=== PATIENT | male | born 1955 | race Caucasian/White ===

== ENCOUNTER → 2022-05-15 | Outpatient (CLI) | payer MEDICARE | LOC: RAD 08:37 | PROVIDERS: ATTEND Family Medicine | DX: I89.0 Lymphedema, not elsewhere classified (principal) ==

== ENCOUNTER → 2022-05-15 | Outpatient (CLI) | payer MEDICARE, OTHER | LOC: CARD 08:33 | PROVIDERS: ATTEND Podiatrist | DX: R60.0 Localized edema (principal) | CPT/HCPCS: 93925; 93970 ==

== ENCOUNTER → 2022-10-15 | Outpatient (CLI) | payer MEDICARE | LOC: CT 13:30 | PROVIDERS: ATTEND Family Medicine | DX: F17.210 Nicotine dependence, cigarettes, uncomplicated (principal) | CPT/HCPCS: 71250 ==

== ENCOUNTER → 2023-04-10 | Outpatient (REF) | payer MEDICARE ==
[~2023-04-10] MED LIST: IOPAMIDOL 370 MG/ML 100 ML INFUS..BTL INJ ONE; SODIUM CHLORIDE 0.9% 100 ML ONE
[2023-04-10 08:55] LABS: CREATININE, SERUM 1.14 mg/dL (0.72-1.25)
== END ==
LOC: CT 07:36
PROVIDERS: ATTEND Surgery Vascular Surgery
DX: I73.9 Peripheral vascular disease, unspecified (principal); Z95.828 Presence of other vascular implants and grafts
CPT/HCPCS: 36415; 75635; 82565; 84520; J7050; Q9967

== ENCOUNTER → 2023-09-03 | Day surgery (SDC) | payer MEDICARE ==
[2023-08-28 09:32] LABS: BASOPHILS # (AUTO) 0.1 (0.0-0.1); BASOPHILS % 0.9 % (0.0-1.0); EOSINOPHILS # (AUTO) 0.4 (0.0-0.4); EOSINOPHILS % 6.2 % (0.0-6.0); HEMATOCRIT 44.8 % (38.2-49.6); HEMOGLOBIN 15.6 g/dL (14.0-18.0); LYMPHOCYTES # (AUTO) 1.9 (1.0-3.2); LYMPHOCYTES % 28.1 % (18.0-39.1); MEAN CORPUSCULAR HEMOGLOBIN 29.9 pg (28-32); MEAN CORPUSCULAR HGB CONC 34.8 g/dL (31-35); MONOCYTES # (AUTO) 0.6 (0.2-0.8); MONOCYTES % 8.4 % (4.4-11.3); NEUTROPHILS # (AUTO) 3.8 (2.1-6.9); NEUTROPHILS % 55.8 % (38.7-80.0); PLATELET COUNT 146 x10e3/uL (140-360); RED BLOOD COUNT 5.21 x10e6/uL (4.3-5.7); RED CELL DISTRIBUTION WIDTH 14.5 % (11.7-14.4)
[2023-08-28 09:52] LABS: ANION GAP 15.6 mmol/L (8-16); CALCIUM 9.7 mg/dL (8.4-10.2); CREATININE, SERUM 1.11 mg/dL (0.72-1.25); POTASSIUM 4.6 mmol/L (3.5-5.1)
[~2023-09-03] MED LIST changes: +ACETAMINOPHEN 1000 MG/100 ML 100 ML IV ONE; +ALLOPURINOL100 MG PO; +ASPIRIN81 MG PO; +ATORVASTATIN CA10 MG PO; +BENICAR20 MG PO; +BRILINTA60 MG PO; +CARVEDILOL12.5 MG PO; +CYCLOBENZAPRINE10 MG PO; +FENTANYL CITRATE/PF 100MCG/2 ML INJ ONE; +FLONASE ALLERG9.9 ML INH; +FUROSEMIDE40 MG PO; +GLIPIZIDE ER5 MG PO; -IOPAMIDOL 370 MG/ML 100 ML INFUS..BTL INJ ONE; +IOPAMIDOL 610MG/1ML 300 MG/ML VIAL IV ONE; +JARDIANCE25 MG PO; +LIDOCAINE HCL 2% LOCAL INJ 5 ML SDV VIAL INJ ONE; +METFORMIN HCL500 MG PO; +MULTI-VITAMIN1 EACH PO; +NIFEDIPINE10 MG PO; +OMEPRAZOLE40 MG PO; +ONDANSETRON HCL INJ 2MG/ML 2ML 2 MG/ML VIAL ONE; +PROPOFOL IV EMULSION 10 MG/ML 20 ML VIAL ONE; +PROVENTIL HFA6.7 GM INH; +SEVOFLURANE INHAL SOLN 250 ML PEN BTL ONE; -SODIUM CHLORIDE 0.9% 100 ML ONE; +SPIRIVA RESPIMAT4 GM INH; +SYSTANE 0.3-0.415 ML OU; +TYLENOL EXTRA500 MG PO; +VASCEPA1 GM PO; +VISINE DRY EYE30 ML OU; +VITAMIN D3125 MCG PO; +ZETIA10 MG PO
[2023-09-03] MEDS: CEFTRIAXONE 1 GM VIAL ONE (08:32)
[2023-09-03] MEDS: LACTATED RINGER'S 1,000 ML ONE (08:32)
[2023-09-03] MEDS: GENTAMICIN 80MG/NS 100 ML 200 ML IV ONE (08:33)
[2023-09-03 11:20] VITALS: TEMP 98.5
[2023-09-03] MEDS: PHENAZOPYRIDINE HCL 100 MG TAB ONE (11:50)
[2023-09-03 12:50] VITALS: BP 131/58; PULSE 57; RESP 16; O2SAT 95
== END | disposition home or self-care (01) ==
LOC: OR 08:27
PROVIDERS: ATTEND Urology
DX: N40.1 Benign prostatic hyperplasia with lower urinary tract symptoms (principal); N13.8 Other obstructive and reflux uropathy; R39.14 Feeling of incomplete bladder emptying; R39.12 Poor urinary stream; R35.1 Nocturia; C67.9 Malignant neoplasm of bladder, unspecified; N39.0 Urinary tract infection, site not specified; N35.819 Other urethral stricture, male, unspecified site; N32.89 Other specified disorders of bladder; N32.81 Overactive bladder; N39.41 Urge incontinence; R81 Glycosuria; K42.9 Umbilical hernia without obstruction or gangrene; I10 Essential (primary) hypertension; E11.9 Type 2 diabetes mellitus without complications; I25.10 Atherosclerotic heart disease of native coronary artery without angina pectoris; J44.9 Chronic obstructive pulmonary disease, unspecified; E78.5 Hyperlipidemia, unspecified; M54.9 Dorsalgia, unspecified; K21.9 Gastro-esophageal reflux disease without esophagitis; Z01.810 Encounter for preprocedural cardiovascular examination; Z01.812 Encounter for preprocedural laboratory examination; Z79.84 Long term (current) use of oral hypoglycemic drugs; Z79.82 Long term (current) use of aspirin; Z79.899 Other long term (current) drug therapy; Z68.38 Body mass index [BMI] 38.0-38.9, adult; Z92.21 Personal history of antineoplastic chemotherapy; Z95.820 Peripheral vascular angioplasty status with implants and grafts
CPT/HCPCS: 52005; C9740; 36415; 74420; 80048; 82948; 85025; 93005; C1758; J0696; J1580; J2001; J2405; L8699

== ENCOUNTER → 2024-02-20 | Outpatient (REF) | payer MEDICARE ==
[~2024-02-20] MED LIST changes: -ACETAMINOPHEN 1000 MG/100 ML 100 ML IV ONE; -FENTANYL CITRATE/PF 100MCG/2 ML INJ ONE; -IOPAMIDOL 610MG/1ML 300 MG/ML VIAL IV ONE; -LIDOCAINE HCL 2% LOCAL INJ 5 ML SDV VIAL INJ ONE; -ONDANSETRON HCL INJ 2MG/ML 2ML 2 MG/ML VIAL ONE; -PROPOFOL IV EMULSION 10 MG/ML 20 ML VIAL ONE; -SEVOFLURANE INHAL SOLN 250 ML PEN BTL ONE
[2024-02-20 15:31] LABS: BASOPHILS # (AUTO) 0.1 (0.0-0.1); BASOPHILS % 1.1 % (0.0-1.0); EOSINOPHILS # (AUTO) 0.4 (0.0-0.4); EOSINOPHILS % 6.6 % (0.0-6.0); HEMATOCRIT 43.6 % (38.2-49.6); HEMOGLOBIN 14.3 g/dL (14.0-18.0); LYMPHOCYTES # (AUTO) 1.9 (1.0-3.2); LYMPHOCYTES % 35.1 % (18.0-39.1); MEAN CORPUSCULAR HEMOGLOBIN 30.4 pg (28-32); MEAN CORPUSCULAR HGB CONC 32.8 g/dL (31-35); MEAN CORPUSCULAR VOLUME 92.8 fL (81-99); MONOCYTES # (AUTO) 0.5 (0.2-0.8); MONOCYTES % 9.4 % (4.4-11.3); NEUTROPHILS # (AUTO) 2.6 (2.1-6.9); NEUTROPHILS % 47.4 % (38.7-80.0); PLATELET COUNT 145 x10e3/uL (140-360); RED CELL DISTRIBUTION WIDTH 15.3 % (11.7-14.4); WHITE BLOOD COUNT 5.44 x10e3/uL (4.8-10.8)
[2024-02-20 15:55] LABS: ALBUMIN 4.3 g/dL (3.5-5.0); ALBUMIN/GLOBULIN RATIO 1.3 (0.8-2.0); ANION GAP 16.3 mmol/L (8-16); BILIRUBIN,TOTAL 0.5 mg/dL (0.2-1.2); CALCIUM 9.9 mg/dL (8.4-10.2); CREATININE, SERUM 1.31 mg/dL (0.72-1.25); POTASSIUM 4.3 mmol/L (3.5-5.1); TOTAL PROTEIN 7.7 g/dL (6.5-8.1)
== END | disposition home or self-care (01) ==
LOC: LAB 05:00 → OR 02-26 08:06 → EDSTATUS 02-26 10:30
PROVIDERS: ATTEND Surgery
DX: L72.8 Other follicular cysts of the skin and subcutaneous tissue (principal); Z53.9 Procedure and treatment not carried out, unspecified reason
CPT/HCPCS: 36415; 71046; 80053; 85025; 93005

== ENCOUNTER → 2024-09-22 | Day surgery (SDC) | payer MEDICARE ==
[2024-09-21 10:36] LABS: BASOPHILS # (AUTO) 0.1 (0.0-0.1); BASOPHILS % 1.2 % (0.0-1.0); EOSINOPHILS # (AUTO) 0.4 (0.0-0.4); HEMATOCRIT 45.8 % (38.2-49.6); HEMOGLOBIN 15.2 g/dL (14.0-18.0); LYMPHOCYTES # (AUTO) 1.8 (1.0-3.2); LYMPHOCYTES % 34.8 % (18.0-39.1); MEAN CORPUSCULAR HEMOGLOBIN 28.8 pg (28-32); MEAN CORPUSCULAR HGB CONC 33.2 g/dL (31-35); MEAN CORPUSCULAR VOLUME 86.9 fL (81-99); MONOCYTES # (AUTO) 0.3 (0.2-0.8); NEUTROPHILS # (AUTO) 2.6 (2.1-6.9); NEUTROPHILS % 50.8 % (38.7-80.0); PLATELET COUNT 129 x10e3/uL (140-360); RED BLOOD COUNT 5.27 x10e6/uL (4.3-5.7); RED CELL DISTRIBUTION WIDTH 14.7 % (11.7-14.4); WHITE BLOOD COUNT 5.17 x10e3/uL (4.8-10.8)
[2024-09-21 10:59] LABS: ANION GAP 17.8 mmol/L (8-16); CALCIUM 9.4 mg/dL (8.4-10.2); CREATININE, SERUM 1.17 mg/dL (0.72-1.25); POTASSIUM 3.8 mmol/L (3.5-5.1)
[~2024-09-22] MED LIST changes: +ACETAMINOPHEN 1000 MG/100 ML 100 ML IV ONE; +ANORO ELLIPTA1 EACH; +D3-5000125 MCG; +DEXAMETHASONE SOD PHOS INJ 4 MG/ML SDV ONE; +EPHEDRINE SULFATE INJ 50 MG/ML VIAL ONE; +FENOFIBRATE145 MG PO; +FENTANYL CITRATE/PF 100MCG/2 ML INJ ONE; +LIDOCAINE HCL 2% LOCAL INJ 5 ML SDV VIAL INJ ONE; +ONDANSETRON HCL INJ 2MG/ML 2ML 2 MG/ML VIAL ONE; +PROPOFOL IV EMULSION 10 MG/ML 20 ML VIAL ONE; +SEVOFLURANE INHAL SOLN 250 ML PEN BTL ONE; +TORSEMIDE100 MG PO
[2024-09-22] MEDS: LACTATED RINGER'S 1,000 ML ONE (07:35)
[2024-09-22] MEDS: CEFAZOLIN SODIUM 2 GM ONE (07:36)
[2024-09-22 11:00] VITALS: TEMP 97.6
[2024-09-22 11:15] VITALS: BP 141/61; PULSE 78; RESP 16; O2SAT 98
== END | disposition home or self-care (01) ==
LOC: OR 06:48
PROVIDERS: ATTEND Urology
DX: L82.1 Other seborrheic keratosis (principal); C67.9 Malignant neoplasm of bladder, unspecified; I25.10 Atherosclerotic heart disease of native coronary artery without angina pectoris; Z95.5 Presence of coronary angioplasty implant and graft; E78.5 Hyperlipidemia, unspecified; J44.9 Chronic obstructive pulmonary disease, unspecified; E11.9 Type 2 diabetes mellitus without complications; K21.9 Gastro-esophageal reflux disease without esophagitis; F17.210 Nicotine dependence, cigarettes, uncomplicated; Z01.810 Encounter for preprocedural cardiovascular examination; Z01.812 Encounter for preprocedural laboratory examination; Z79.82 Long term (current) use of aspirin; Z79.84 Long term (current) use of oral hypoglycemic drugs; Z79.899 Other long term (current) drug therapy
CPT/HCPCS: 17110; 36415 ×2; 80048; 82948; 85025; 88305; 93005; J0131; J2003; J2405; J2704; J3010; J7121; J1100

== ENCOUNTER 2024-12-28 10:41 | Observation (INO) | payer MEDICARE, OTHER ==
[~2024-12-28] VITALS: Ht 165.1 cm; Wt 94.8 kg
[~2024-12-28 10:41] MED LIST changes: -ACETAMINOPHEN 1000 MG/100 ML 100 ML IV ONE; -DEXAMETHASONE SOD PHOS INJ 4 MG/ML SDV ONE; -EPHEDRINE SULFATE INJ 50 MG/ML VIAL ONE; -FENTANYL CITRATE/PF 100MCG/2 ML INJ ONE; -LIDOCAINE HCL 2% LOCAL INJ 5 ML SDV VIAL INJ ONE; -ONDANSETRON HCL INJ 2MG/ML 2ML 2 MG/ML VIAL ONE; -PROPOFOL IV EMULSION 10 MG/ML 20 ML VIAL ONE; -SEVOFLURANE INHAL SOLN 250 ML PEN BTL ONE
[2024-12-28 11:19] VITALS: TEMP 97.7
[2024-12-28] MEDS: SODIUM CHLORIDE 0.9% 1000ML 1,000 ML IV STA (12:05)
[2024-12-28 12:13] LABS: BASOPHILS % 1.2 % (0.0-1.0); EOSINOPHILS % 8.1 % (0.0-6.0); LYMPHOCYTES % 40.2 % (18.0-39.1); MONOCYTES % 7.7 % (4.4-11.3); NEUTROPHILS % 41.2 % (38.7-80.0); RED CELL DISTRIBUTION WIDTH 17.7 % (11.7-14.4)
[2024-12-28 12:34] LABS: INR 0.98
[2024-12-28 12:42] LABS: EST GLOMERULAR FILTRATION RATE 78.0 ML/MIN (>=60)
[2024-12-28] MEDS ORDERED: IOPAMIDOL 370 MG/ML 100 ML INFUS..BTL INJ ONE (12:53)
[2024-12-28] MEDS ORDERED: SODIUM CHLORIDE 0.9% 100 ML ONE (12:53)
[2024-12-28 16:00] VITALS: PULSE 73; RESP 18
[2024-12-28 19:08] LABS: EOSINOPHILS % (MANUAL) 5 % (0-7); LYMPHOCYTES % (MANUAL) 43 % (19-48); MONOCYTES % (MANUAL) 7 % (3.4-9.0); NEUTROPHILS % (MANUAL) 45 % (40-74)
[2024-12-28 19:09] LABS: PLATELET ESTIMATE ADEQUATE; PLATELET MORPHOLOGY COMMENT NORMAL; RBC MORPHOLOGY COMMENT NORMAL
[2024-12-28 20:00] VITALS: BP 124/68; PULSE 70; RESP 20; TEMP 97.7; O2SAT 98
[2024-12-28] MEDS: SODIUM CHLORIDE 0.9% 1000ML 1,000 ML IV SCH (20:10)
[2024-12-28 21:45] VITALS: BP 124/68; PULSE 70; RESP 20; TEMP 97.7
[2024-12-29 01:05] LABS: BASOPHILS % 0.9 % (0.0-1.0); EOSINOPHILS % 7.8 % (0.0-6.0); LYMPHOCYTES % 39.2 % (18.0-39.1); MONOCYTES % 8.5 % (4.4-11.3); NEUTROPHILS % 42.3 % (38.7-80.0); RED CELL DISTRIBUTION WIDTH 17.9 % (11.7-14.4)
[2024-12-29 01:08] LABS: % IRON SATURATION 15.0 % (15-50)
[2024-12-29 08:00] VITALS: BP 124/68; PULSE 70; RESP 20; TEMP 97.7; O2SAT 98
[2024-12-29 08:22] LABS: BASOPHILS % 0.8 % (0.0-1.0); EOSINOPHILS % 8.6 % (0.0-6.0); LYMPHOCYTES % 38.6 % (18.0-39.1); MONOCYTES % 8.3 % (4.4-11.3); NEUTROPHILS % 42.7 % (38.7-80.0); RED CELL DISTRIBUTION WIDTH 17.6 % (11.7-14.4)
[2024-12-29 08:24] VITALS: BP 139/57; PULSE 68; RESP 16; TEMP 98.3; O2SAT 100
[2024-12-29 09:20] LABS: EST GLOMERULAR FILTRATION RATE 92.0 ML/MIN (>=60)
[2024-12-29 11:28] VITALS: BP 141/65; PULSE 66; RESP 19; TEMP 98.3; O2SAT 96
[2024-12-29 11:32] LABS: EOSINOPHILS % (MANUAL) 12 % (0-7); LYMPHOCYTES % (MANUAL) 30 % (19-48); MONOCYTES % (MANUAL) 9 % (3.4-9.0); NEUTROPHILS % (MANUAL) 49 % (40-74); PLATELET ESTIMATE ADEQUATE; PLATELET MORPHOLOGY COMMENT NORMAL; RBC MORPHOLOGY COMMENT NORMAL
[2024-12-29 13:51] LABS: BASOPHILS % 0.9 % (0.0-1.0); EOSINOPHILS % 8.8 % (0.0-6.0); LYMPHOCYTES % 40.3 % (18.0-39.1); MONOCYTES % 7.4 % (4.4-11.3); NEUTROPHILS % 41.7 % (38.7-80.0); RED CELL DISTRIBUTION WIDTH 17.3 % (11.7-14.4)
[2024-12-30 11:02] LABS: HEPATITIS A ANTIBODY IGM (P) Negative; HEPATITIS B CORE IGM (P) Negative; HEPATITIS B SURFACE AG (P) Negative
== END 2024-12-29 16:40 | disposition home or self-care (01) ==
LOC: ER 11:18 → INTOOBSV 15:59 → ERHOLD 15:59 → MED/SURG 18:12
PROVIDERS: ADMIT Internal Medicine; ATTEND Internal Medicine
DX: K62.5 Hemorrhage of anus and rectum (principal); I10 Essential (primary) hypertension; E11.9 Type 2 diabetes mellitus without complications; I73.9 Peripheral vascular disease, unspecified; Z87.891 Personal history of nicotine dependence; E78.5 Hyperlipidemia, unspecified; F10.11 Alcohol abuse, in remission; K74.60 Unspecified cirrhosis of liver; Z79.84 Long term (current) use of oral hypoglycemic drugs
CPT/HCPCS: 36415 ×2; 74174; 80053 ×2; 82607; 82728; 82746; 82948 ×2; 83540; 83735; 84466; 85025 ×2; 85045; 85610; 85730; 86850; 86900; 99284; G0378 ×2; J2470 ×2; J7030; J7050; Q9967

== ENCOUNTER → 2025-01-13 | Outpatient (REF) | payer MEDICARE, OTHER | LOC: US 07:47 | PROVIDERS: ATTEND Nurse Practitioner | DX: K76.89 Other specified diseases of liver (principal) | CPT/HCPCS: 76700 ==